=== PATIENT | male | born 1950 | race Caucasian/White ===

== ENCOUNTER 2016-12-07 10:43 | Outpatient (CLI) | payer MEDICARE, BC | END 2016-12-07 10:44 | disposition home or self-care (01) | DX: M50.022 Cervical disc disorder at C5-C6 level with myelopathy (principal); M50.31 Other cervical disc degeneration, high cervical region; M47.812 Spondylosis without myelopathy or radiculopathy, cervical region; M43.12 Spondylolisthesis, cervical region ==

== ENCOUNTER 2016-12-21 12:58 | Day surgery (SDC) | payer MEDICARE, BC | END 2016-12-21 12:59 | disposition home or self-care (01) | PROC: B244ZZZ Ultrasonography of Right Heart (ICD-10-PCS; 2016-12-21) | PROC: 02H633Z Insertion of Infusion Device into Right Atrium, Percutaneous Approach (ICD-10-PCS; principal; 2016-12-21 13:00) | DX: C91.40 Hairy cell leukemia not having achieved remission (principal) ==

== ENCOUNTER 2018-02-23 10:30 | Outpatient (CLI) | payer MEDICARE, BC | END 2018-02-23 10:31 | disposition home or self-care (01) | LOC: LAB 10:30 | PROVIDERS: ATTEND Family Medicine | DX: Z12.5 Encounter for screening for malignant neoplasm of prostate (principal) | CPT/HCPCS: 36415; 84153 ==

== ENCOUNTER 2020-02-26 17:08 | Outpatient (CLI) | payer MEDICARE, OTHER | END 2020-02-26 17:09 | disposition home or self-care (01) | LOC: COV 17:08 | PROVIDERS: ATTEND Family Medicine | DX: J02.9 Acute pharyngitis, unspecified (principal) | CPT/HCPCS: 81599 ==